=== PATIENT | male | born 1965 | race Caucasian/White ===

== ENCOUNTER 2021-07-28 19:39 | Emergency (ER) | payer MEDICARE, SELFPAY ==
[2021-07-28 19:44] VITALS: PULSE 90; RESP 20; TEMP 38.2; O2SAT 96
== END 2021-07-29 02:31 | disposition left against medical advice (07) ==
LOC: ANHED 22:19
DX: Z53.21 Procedure and treatment not carried out due to patient leaving prior to being seen by health care provider (principal)
CPT/HCPCS: 99199

== ENCOUNTER 2022-05-16 09:35 | Outpatient (CLI) | payer MEDICARE, SELFPAY ==
--- NOTE | ~2022-05-16 | US_ITS ---
US venous doppler LE RT DATE: 05/16/2022 10:32 INDICATION: Right calf pain TECHNIQUE: Real-time and color flow imaging and Doppler analysis of the veins of the right lower extr emity COMPARISON: None FINDINGS: The right greater saphenous vein is patent. There is spontaneous and phasic flow and normal augmentation and color flow signal and normal compression of the deep veins of the right lower extre mity. IMPRESSION: No evidence of deep venous thrombosis of right leg Reviewed, dictated and finalized at Location A. Reviewed, dictated and finalized at location B.
[2022-05-16 10:56] LABS: Basophils Percent Auto 0.6 % (0.2-1.2); Eosinophils Absolute Auto 0.5 K/mm3 (0-0.3); Eosinophils Percent Auto 7.2 % (0-4.4); Hematocrit 42.4 % (42.0-52.0); Immature Granulocyte Absolute 0.03 K/mm3 (0.00-0.031); Immature Granulocyte Percent A 0.5 % (0-0.5); Lymphocytes Absolute Auto 1.11 K/mm3 (0.9-3.2); Lymphocytes Percent Auto 17.4 % (18.3-44.2); Mean Corpuscular Hemoglobin 31.8 pg (26-34); Mean Corpuscular Volume 96.4 fl (80-100); Mean Platelet Volume 10.2 fl (7.4-10.4); Monocytes Absolute Auto 0.8 K/mm3 (0.1-0.6); Monocytes Percent Auto 12.1 % (2.6-8.5); Neutrophils Percent Auto 62.2 % (45.5-73.1); Platelet Count Result 156 k/mm3 (150-375); Red Cell Distribution Width 13.6 % (11.5-14.5); White Blood Count 6.4 K/mm3 (4.5-10.0)
[2022-05-16 11:15] LABS: Alanine Aminotransferase 26 U/L (6-50); Albumin Level 3.9 g/dL (3.5-5.1); Alkaline Phosphatase 38 U/L (38-126); Anion Gap 14 mmol/L (8-16); Aspartate Amino Transferase 24 U/L (17-59); Bilirubin,Total 0.3 mg/dL (0.2-1.3); Blood Urea Nitrogen 13 mg/dL (9-20); Calcium 8.3 mg/dL (8.4-10.2); Carbon Dioxide 28 mmol/L (22-30); Chloride 95 mmol/L (98-107); Estimated Glomerular Filt Rate > 60; Glucose 207 mg/dL (65-110); Potassium 4.4 mmol/L (3.4-5.0); Sodium 137 mmol/L (137-145)
== END 2022-05-16 09:36 | disposition home or self-care (01) ==
PROVIDERS: PCP Nurse Practitioner Adult Health; Visit Provider Nurse Practitioner Adult Health
DX: M79.661 Pain in right lower leg (principal); I82.401 Acute embolism and thrombosis of unspecified deep veins of right lower extremity
CPT/HCPCS: 36415; 80053; 85025; 85380; 93971

== ENCOUNTER 2023-08-13 09:35 | Outpatient (CLI) | payer MEDICARE, SELFPAY ==
--- NOTE | ~2023-08-13 | NM_ITS ---
EXAMINATION: NM nancy stress w perfusion DATE: 08/13/2023 13:43 INDICATION: Other forms of dyspnea TECHNIQUE: Rest images were obtained following intravenous administration of 9.6 mCi Tc99m tetrofosmi n (Myoview). The patient was infused intravenously with Lexiscan (Regadenoson). Then, 31.7 mCi Tc99m tetrofosmin (Myoview) was administered intravenously, and stress images were obtained in the supine a nd prone positions. Data was reconstructed into short axis and horizontal and vertical long axis SPEC T images. Gated SPECT images were also obtained. COMPARISON: None. FINDINGS: There is no definite reversible or fixed perfusion abnormality to suggest ischemia or infar ction. There is normal left ventricular chamber size, wall motion and ejection fraction. Left ventr icular ejection fraction measures 66%. IMPRESSION: 1. Normal myocardial perfusion at rest and during stress. 2. Left ventricular ejection fraction measuring 66%. Reviewed, dictated and finalized at location A. D RAIL INSTALLER
--- NOTE | 2023-08-13 09:52 | ECHO_ITS ---
Patient Info Name: Flaquito Forrester Age: 58 years : 1965 Gender: Male Ht: 69 in Wt: 388 lbs BSA: 3.03 m2 HR: 79 bpm BP: 166 / 87 mmHg Technical Quality: Poor Exam Date: 08/13/2023 9:59 AM Exam Location: Echo Lab Patient Status: Outpatient Admit Date: 08/13/2023 Staff Ordering Physician: Tank Dangelo DO Attending Provider: Tank Dangelo DO Referring Physician: Antolin POST; Exam Type: CA echo dop color flow w con Study Info Indications R06.00 - Dyspnea, unspecified I10 - Essential (primary) hypertension Complete two-dimensional, color flow and Doppler transthoracic echocardiogram is performed with contrast to opacify the left ventricle and to improve the deliniation of the left ventricle endocardial borders. Contrast/Agitated Saline Contrast/Ag. Saline: Definity Amount: 2.00 ml Existing IV Access: Yes IV Access Condition: patent with no signs of infiltration Reason for Poor Study: patient body habitus Summary 1. Technically suboptimal study due to poor sonographic images. 2. Definity contrast administered improved wall motion interpretation. 3. Left ventricular chamber dimension is normal. 4. Left ventricular systolic function is normal, estimated at 65-70%. 5. There is mild concentric increased left ventricular wall thickness. 6. The left ventricular diastolic function is grade I diastolic dysfunction. 7. E/e' 13 is mildly elevated. 8. There is mild aortic valve sclerosis. Left Ventricle Technically suboptimal study due to poor sonographic images. Definity contrast administered improved wall motion interpretation. E/e' 13 is mildly elevated. Left ventricular chamber dimension is normal. Left ventricular systolic function is normal, estimated at 65-70%. There is mild concentric increased left ventricular wall thickness. The left ventricular diastolic function is grade I diastolic dysfunction. Right Ventricle Right ventricular systolic function is normal and with normal TAPSE 2.1 cm. Right ventricular chamber dimension is normal. Left Atria Left atrial chamber dimension is normal. Right Atria Right atrial chamber dimension is normal. Aortic Valve The aortic valve is not well visualized. Cannot determine number of aortic valve leaflets. There is no aortic valve stenosis based on normal valve area and gradients. There is mild aortic valve sclerosis. There is no aortic valve regurgitation. Pulmonic Valve There is no pulmonic regurgitation. Mitral Valve There is no mitral valve stenosis. There is no mitral valve regurgitation. Tricuspid Valve There is no tricuspid valve regurgitation. Pericardium/Pleural There is no pericardial effusion. Inferior Vena Cava Normal inferior vena cava with >50% collapse upon inspiration consistent with normal right atrial pressure, 5 mmHg. Aorta The aortic root size at the sinus of Valsalva is normal. Left Ventricular Outflow Tract Name Value Normal LVOT 2D LVOT Diameter 2.31 cm LVOT Doppler LVOT Peak Gradient 4 mmHg LVOT Mean Gradient 2 mmHg LVOT VTI 19.15 cm LVOT VTI/AV VTI Ratio 0.76
--- NOTE | 2023-08-13 10:24 | EST_ITS ---
Patient Info Name: Flaquito Forrester Age: 58 years : 1965 Gender: Male Ht: 68 in Wt: 383 lbs BSA: 3.00 m2 HR: 79 bpm BP: 113 / 75 mmHg Exam Date: 08/13/2023 11:46 AM Exam Location: Echo Lab Patient Status: Outpatient Admit Date: 08/13/2023 Staff Ordering Physician: Tank Dangelo DO Attending Provider: Tank Dangelo DO Exercise Technologist: Gayle Lynch RDCS Exercise Physician: Tank Dangelo DO Exam Type: CA stress nancy w NM Study Info A regadenoson stress test was performed. Summary 1. 1. Negative lexiscan stress test for ischemic ST changes by ECG criteria. 2. 2. Stable hemodynamics throughout the test. 3. 3. Nuclear scan to follow and will be reported separately. Please correlate with it. 4. 4. Patient informed of the above results. Protocol: Lexiscan Stress ECG Details Stage: REST Duration (min): 2 min : 2 sec HR (bpm): 81 SBP (mmHg): 113 DBP (mmHg): 75 Stage: REST Duration (min): 9 min : 1 sec HR (bpm): 79 SBP (mmHg): 113 DBP (mmHg): 75 Stage: STAGE 1 Duration (min): 1 min : 0 sec HR (bpm): 86 SBP (mmHg): 133 DBP (mmHg): 83 Stage: RECOVERY Duration (min): 1 min : 0 sec HR (bpm): 81 SBP (mmHg): 133 DBP (mmHg): 83 Stage: RECOVERY Duration (min): 2 min : 0 sec HR (bpm): 80 SBP (mmHg): 133 DBP (mmHg): 83 Stage: RECOVERY Duration (min): 3 min : 0 sec HR (bpm): 84 SBP (mmHg): 132 DBP (mmHg): 83 Stage: RECOVERY Duration (min): 4 min : 0 sec HR (bpm): 82 SBP (mmHg): 132 DBP (mmHg): 83 Stage: RECOVERY Duration (min): 4 min : 4 sec HR (bpm): 82 SBP (mmHg): 132 DBP (mmHg): 83 Rest HR: 79 bpm Peak HR: 90 bpm Rest Sys BP: 113 mmHg Peak Sys BP: 133 mmHg Max Pred HR: 160 bpm % Max Pred HR: 56 % Target HR: 136 bpm Max RPP: 11,970 bpm*mmHg Termination Reason: Completed protocol Cardiac Symptoms: Shortness of breath Total Time: 1 min : 0 sec Rest Pedersen BP: 75 mmHg Peak Pedersen BP: 83 mmHg Total Dose: 0.4 mg Resting ECG Sinus rhythm. Stress ECG No ST changes. Arrhythmias None. Report Signatures
[2023-08-13] MEDS: PERFLUTREN LIPID MICROSPHERES 1.5 ML VIAL DILUTED TO 10 ML TOTAL VOLUME IV PUSH (10:25)
--- NOTE | 2023-08-13 13:08 | IVDEFINITY ---
Prior to administration of IV Definity the patient was educated on the risks and benefits of the imaging enhancing agent including potential adverse side effects. The patient verbalized understanding. Allergies were verified. No exclusion criteria were identified and at least one of the following inclusion criteria were met: 1) physician request, 2) patient technically difficult to image (per the [place] [employer] guidelines of two or more segments not discernable within the apical view), or 3) questionable left ventricular function. ?
== END 2023-08-13 09:36 | disposition home or self-care (01) ==
LOC: ANHCARD 09:36
PROVIDERS: PCP Family Medicine; Visit Provider Internal Medicine Cardiovascular Disease
DX: I10 Essential (primary) hypertension (principal); R06.09 Other forms of dyspnea
CPT/HCPCS: 78452; 93017; A9502; C8929; J2785; Q9957

== ENCOUNTER 2025-06-15 10:06 | Outpatient (CLI) | payer MEDICARE, SELFPAY ==
--- NOTE | ~2025-06-15 | XR_ITS ---
EXAMINATION: XR foot LT min 3V, 06/15/2025 10:28 CDT HISTORY: left heel spur COMPARISON: No comparisons available. Findings: No acute fracture or malalignment. Large calcaneal spur. Moderate Achilles enthesopathy. Soft tissues unremarkable. Impression: No acute fracture or malalignment. Reviewed, dictated and finalized at location P. Impression: No acute fracture or malalignment.
--- OUTSIDE RECORDS SUMMARY | 2025-06-15 12:11 | XMS_ITS | Clinical Summary ---
Author Organization [facility] Address [address] [place] [address] Phone Care Team Providers Care Tapping Machine Operator Automatic Name Role Phone Chandan Cervantes MD Primary Care Provider + [phone] Allergies No known active allergies Medications metFORMIN (GLUCOPHAGE XR) 500 mg Extended Release 24 hour tablet TAKE 2 TABLETS BY MOUTH TWICE A DAY 2 9 Active glipiZIDE (GLUCOTROL XL) 10 mg Extended Release 24 hour tablet 9 Active amLODIPine (NORVASC) 10 mg tablet Take 10 mg by mouth. Active lisinopril (PRINIVIL) 20 mg tablet Take 20 mg by mouth. Active metoprolol succinate (TOPROL XL) 100 mg Extended Release 24 hour tablet 9 Active simvastatin (ZOCOR) 10 mg tablet 9 Active tamsulosin (FLOMAX) 0.4 mg capsule 9 Active TRULICITY 1.5 mg/0.5 mL Pen Injector INJECT 0.5 ML SUB-Q EVERY WEEK IN THE ABDOMEN, THIGH, OR UPPER ARM ROTATING INJECTION SITES 2 9 Active pioglitazone (ACTOS) 15 mg tablet TAKE 1 TABLET BY MOUTH EVERY DAY 0 9 Active Active Problems No known active problems Social History Tobacco Use Types Packs/Day Years Used Date Smoking Tobacco: Never Smokeless Tobacco: Never Alcohol Use Standard Drinks/Week Comments Never 0 (1 standard drink = 0.6 oz pur e alcohol) Sex and Gender Information Value Date Recorded Sex Assigned at Not on file Legal Sex Male 4:02 PM CDT Gender Identity Not on file Sexual Orientation Not on file Last Filed Vital Signs Vital Sign Reading Time Taken Comments Blood Pressure 159/96 03/19/2019 2:51 PM CDT Pulse 74 03/19/2019 2:51 PM CDT Temperature - - Respiratory Rate - - Oxygen Saturation - - Inhaled Oxygen Concentration - - Weight 181.4 kg (400 lb) 03/19/2019 2:51 PM CDT Height 172.7 cm (5' 8) 03/19/2019 2:51 PM CDT Body Mass Index 60.82 03/19/2019 2:51 PM CDT Plan of Treatment Health Maintenance Due Date Last Done Comments DTAP/TDAP/TD VACCINES (1 - Tdap) 1982 COLORECTAL SCREENING 2008 Colorectal Cancer Screening 2008 FIT-DNA Q 3 years 2008 FIT/FOBT Q 1 year 2008 Flex Sig/CT Colonography Q 5 years 2008 ZOSTER VACCINE (1 of 2) 2013 INFLUENZA VACCINE (#1) 2025 RSV VACCINE (60+ or ) (1 - 1-dose 75+ series) [address] [place] [id number] Care Teams Tapping Machine Operator Automatic Relationship Specialty Start Date End Date Chandan Cervantes MD [address] [place] [address] PCP - General Family Practice 03/19/19
--- OUTSIDE RECORDS SUMMARY | 2025-06-15 12:11 | XMS_ITS | Clinical Summary ---
Author Organization [facility] [address] Address [address] [place] [address] Care Team Providers Care Sugar House Supervisor Name Role Phone Willam Freeman MD Primary Care Provider [phone] Allergies No known active allergies Medications amLODIPine (NORVASC) 10 mg tablet Take 10 mg by mouth daily. Active clotrimazole 1 % cream Apply topically 2 (two) times a day. Active acetaminophen (TYLENOL) 325 mg tablet Take 650 mg by mouth every 6 (six) hours as needed for pain. Active glipiZIDE XL (GLUCOTROL XL) 10 mg 24 hr tabletIndicatio ns:type 2 diabetes mellitus Take 10 mg by mouth daily. Active ibuprofen (ibuprofen) 200 mg tab/cap Take by mouth every 6 (six) hours as needed for pain. Active canagliflozin (INVOKANA) 300 mg tabletIndicatio ns:type 2 diabetes mellitus 300 mg daily. Active lisinopril (PRINIVIL,ZESTR IL) 20 mg tablet Take 20 mg by mouth daily. Active metoprolol (LOPRESSOR) 100 mg tablet Take 100 mg by mouth daily. Active nateglinide (STARLIX) 120 mg tabletIndicatio ns:type 2 diabetes mellitus Take 120 mg by mouth 3 (three) times a day before meals. Active insulin aspart (NovoLOG) 100 unit/mL insulin pen Inject 10 Units under the skin 2 (two) times a day. Active cholecalciferol (VITAMIN D-3) 50,000 unit capsule Take 50,000 Units by mouth once a week. Active Active Problems Problem Noted Date Diagnosed Date Chest pain, unspecified 03/22/2017 Assessment & Plan (03/22/2017 2:09 PM CDT): Patient has multiple risk factors for coronary artery disease and therefore I will advise him to undergo a Lexiscan nuclear stress test to rule out ischemia. Continue aspirin 81 mg daily Essential hypertension, benign 03/22/2017 Assessment & Plan (03/22/2017 2:09 PM CDT): Controlled. Continue current medication. BMI 50.0-59.9, adult 03/22/2017 Assessment & Plan (03/22/2017 2:10 PM CDT): Will advise patient to lose weight through exercise once we rule out coronary artery disease. I advised patient for diet modification and the importance of losing some weight Hypertriglyceridemia 03/22/2017 Assessment & Plan (03/22/2017 2:10 PM CDT): Latest lipid panel shows elevated triglycerides. Next time we will check fasting lipid panel to rule out hyper triglycerides Exertional shortness of breath 03/22/2017 Assessment & Plan (03/22/2017 2:11 PM CDT): Will obtain echocardiogram to rule out systolic heart failure. Morbid obesity due to excess calories 03/22/2017 Surgical History Surgery Date Site/Laterality Comments SHOULDER SURGERY Right DEBRIDEMENT TENNIS ELBOW Medical History Medical History Date Comments Diabetes mellitus Hypertension Hyperlipidemia Family History Medical History Relation Name Comments Heart disease Father Diabetes Mother Heart disease Mother Relation Name Status Comments Father Mother Social History Tobacco Use Types Packs/Day Years Used Date Smoking Tobacco: Former Cigarettes 0 03/22/1978 - 03/22/1998 Smokeless Tobacco: Never Alcohol Use Standard Drinks/Week Comments No 0 (1 standard drink = 0.6 oz pur e alcohol) Personal Safety Answer Date Recorded Getting School Help Needed Not on file 11/08 Sex and Gender Information Value Date Recorded Sex Assigned at Not on file 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 Gender Identity Not on file Sexual Orientation Not on file Obstetrics History Last Filed Vital Signs Vital Sign Reading Time Taken Comments Blood Pressure 108/74 03/22/2017 1:45 PM CDT Pulse 77 03/22/2017 1:45 PM CDT Temperature - - Respiratory Rate - - Oxygen Saturation 94% 03/22/2017 1:45 PM CDT Inhaled Oxygen Concentration - - Weight 175.1 kg (386 lb) 03/22/2017 1:45 PM CDT Height 172.7 cm (5' 8) 03/22/2017 1:45 PM CDT Body Mass Index 58.69 03/22/2017 1:45 PM CDT Plan of Treatment Not on file Insurance [facility] Care Teams Sugar House Supervisor Relationship Specialty Start Date End Date Willam Freeman MD [address] [place] [address] PCP - General Family Medicine 03/21/17
== END 2025-06-15 10:07 | disposition home or self-care (01) ==
PROVIDERS: PCP Family Medicine; Visit Provider Nurse Practitioner Family
DX: M77.32 Calcaneal spur, left foot (principal)
CPT/HCPCS: 73630